=== PATIENT | female | born 1975 | race Caucasian/White ===

== ENCOUNTER 2020-08-24 16:49 | Emergency (ER) | payer OTHER ==
[~2020-08-24] VITALS: Ht 167.6 cm; Wt 130.9 kg
[2020-08-24 17:01] VITALS: BP 118/73
--- NOTE | 2020-08-24 17:06 | PHYS DOC ---
Past History Past Medical History: No Pertinent History Past Surgical History: Cholecystectomy, Hysterectomy, Tonsillectomy, Tubal ligation Smoking: Non-smoker Alcohol Use: None Drug Use: None General Adult EDM: Chief Complaint: ANKLE PROBLEM HPI: HPI: Patient is a 45-year-old email who presents with right ankle pain. Patient states that she was walking in the house this morning when she slipped on ice and fell. Patient reports taking 800 mg of ibuprofen this morning with no relief. Patient reporting pain 8 out of 10. Patient has history of hypothyroid, GERD, bipolar, migraines. Review of Systems: Review of Systems: Constitutional: Denies fever or chills Eyes: Denies change in visual acuity HENT: Denies nasal congestion or sore throat Respiratory: Denies cough or shortness of breath Cardiovascular: Denies chest pain or edema GI: Denies abdominal pain, nausea, vomiting, bloody stools or diarrhea : Denies dysuria Musculoskeletal: Right ankle pain Integument: Denies rash Neurologic: Denies headache, focal weakness or sensory changes Endocrine: Denies polyuria or polydipsia Lymphatic: Denies swollen glands Psychiatric: Denies depression or anxiety Allergies: Allergies: Allergies Coded Allergies Type Severity Reaction Last Updated Verified No Known Drug Allergies 08/24/20 No Physical Exam: PE: Constitutional: Well developed, well nourished, no acute distress, non-toxic appearance. [] HENT: Normocephalic, atraumatic, bilateral external ears normal, oropharynx moist, no oral exudates, nose normal. [] Eyes: PERRLA, EOMI, conjunctiva normal, no discharge. [] Neck: Normal range of motion, no tenderness, supple, no stridor. [] Cardiovascular:Heart rate regular rhythm, no murmur [] Lungs & Thorax: Bilateral breath sounds clear to auscultation [] Abdomen: Bowel sounds normal, soft, no tenderness, no masses, no pulsatile masses. [] Skin: Warm, dry, no erythema, no rash. [] Back: No tenderness, no CVA tenderness. [] Extremities: Right ankle tenderness, ROM intact, no edema. [] Neurologic: Alert and oriented X 3, normal motor function, normal sensory function, no focal deficits noted. [] Psychologic: Affect normal, judgement normal, mood normal. [] EKG: EKG: [] Radiology/Procedures: Radiology/Procedures: []Left ankle 3 views INDICATION: Right ankle pain COMPARISON: None FINDINGS: An acute oblique fracture through the distal fibula at the level of the ankle mortise is present with minimal widening. Ankle mortise appears symmetric. No dislocation noted. Mild soft tissue tissue swelling is present. IMPRESSION: Acute Turner type B right ankle fracture with minimal displacement. Electronically signed by: aTnya Humphreys MD (08/24/2020 5:26 PM) [id number] Heart Score: Risk Factors: Risk Factors: DM, Current or recent (<one month) smoker, HTN, HLP, family history of CAD, obesity. Risk Scores: Score 0 - 3: 2.5% MACE over next 6 weeks - Discharge Home Score 4 - 6: 20.3% MACE over next 6 weeks - Admit for Clinical Observation Score 7 - 10: 72.7% MACE over next 6 weeks - Early Invasive Strategies Course & Med Decision Making: Course & Med Decision Making Pertinent Labs and Imaging studies reviewed. (See chart for details) []Patient is a 45-year-old email who presents with right ankle pain. Patient states that she was walking in the house this morning when she slipped on ice and fell. Patient reports taking 800 mg of ibuprofen this morning with no relief. Patient reporting pain 8 out of 10. Patient has history of hypothyroid, GERD, bipolar, migraines. Patient states that she is unable to bear weight, patient uses a cane to ambulate into the emergency room. Dorsal pedal pulses intact. Ankle x-ray ordered rule out fracture. Hydrocodone given for pain. Right ankle x-ray ordered for gravity test to determine stability. Patient appears upset due to wait time for radiology results. I spoke with patient and apologized for the weight. Patient states that she understands that we are busy. Explained to mom and patient that she would be discharged after her splint was placed. X-ray shows ankle stability. Posterior short legs splints ordered. Patient still reporting pain. Hydrocodone given. Sending home patient with instructions for RICE and a prescription for hydrocodone. Dragon Disclaimer: Pooja Disclaimer: This electronic medical record was generated, in whole or in part, using a voice recognition dictation system. Departure Departure: Impression: Primary Impression: Fracture, ankle Qualified Codes: S82.891A - Other fracture of right lower leg, initial encounter for closed fracture Disposition: 01 DC HOME SELF CARE/HOMELESS Condition: STABLE Referrals: GARFIELD JACKSON DO (PCP) Patient Instructions: Ankle Fracture, [id number] Additional Instructions: You were seen in the emergency room tonight for an ankle fracture. We have placed a splint on your right ankle given you crutches. I am sending you home with a prescription for pain medication and you can also take ibuprofen for discomfort. Make sure to rest and elevate your leg. Do not apply any weight to your ankle. Please call Ortho tomorrow to set up an appointment for follow up. [phone]. They are located at [address] [place] [address], [address], [place]. Please return to the emergency room with worsening symptoms or concerns. EMERGENCY DEPARTMENT GENERAL DISCHARGE INSTRUCTIONS Thank you for coming to [facility] (ED) today and trusting us with you care. We trust that you had a positivie experience in our Emergency Department. If you wish to speak to the department management, you may call the director at [phone]. YOUR FOLLOW UP INSTRUCTIONS ARE FOLLOWS: 1. Do you have a private Doctor? If you do not have a private doctor, please ask for a resource list of physicians or clinics that may be able to assist you with follow up care. 2. The Emergency Physician has interpreted your x-rays. The X-Ray specialist will also review them. If there is a change in the findings, you will be notified in 48 hours when at all possible. 3. A lab test or culture has been done, your results will be reviewed and you will be notified if you need a change in treatment. ADDITIONAL INSTRUCTIONS AND INFORMATION: 1. Your care today has been supervised by a physician who is specially trained in emergency care. Many problems require more than one evaluation for a complete diagnosis and treatment. We recommend that you schedule your follow up appointment as recommended to ensure complete treatment of you illness or injury. If you are unable to obtain follow up care and continue to have a problem, or if your condition worsens, we recommend that you return to the ED. 2. We are not able to safely determine your condition over the phone nor are we able to give sound medical advice over the phone. For these safety reasons, if you call for medical advice we will ask you to come to the ED for further evaluation. 3. If you have any questions regarding these discharge instructions please call the ED at [phone]. SAFETY INFORMATION: In the interest of safety, wellness, and injury prevention; we encourage you to wear your sealbelt, if you smoke; quite smoking, and we encourage family to use a protective helmet for bicycling and other sporting events that present an increased risk for head injury. IF YOUR SYMPTOMS WORSEN OR NEW SYMPTOMS DEVELOP, OR YOU HAVE CONCERNS ABOUT YOUR CONDITION; OR IF YOUR CONDITION WORSENS WHILE YOU ARE WAITING FOR YOUR FOLLOW UP APPOINTMENT; EITHER CONTACT YOUR PRIMARY CARE DOCTOR, THE PHYSICIAN WHOSE NAME AND NUMBER YOU WERE GIVEN, OR RETURN TO THE ED IMMEDIATELY. Scripts Hydrocodone Bit/Acetaminophen (HYDROCODONE-APAP 5-325 ) 1 Each Tablet 1 TAB PO PRN Q6HRS PRN for PAIN for 3 Days, #12 TAB 0 Refills Prov: MEME DAS APRN 08/24/20 MEME DAS APRN Aug 24, 2020 17:06
[2020-08-24] MEDS ORDERED: HYDROcodone/APAP 5/325MG 1 TAB TABLET PO ONE ×2 (17:15→19:15)
--- NOTE | 2020-08-24 17:28 | RAD ---
Left ankle 3 views INDICATION: Right ankle pain COMPARISON: None FINDINGS: An acute oblique fracture through the distal fibula at the level of the ankle mortise is present with minimal widening. Ankle mortise appears symmetric. No dislocation noted. Mild soft tissue tissue swe lling is present. IMPRESSION: Acute Truner type B right ankle fracture with minimal displacement. Electronically signed by: Tanya Humphreys MD (08/24/2020 5:26 PM) [id number]
[2020-08-24] MEDS ORDERED: HYDR-2155 PO (19:23)
--- NOTE | 2020-08-24 19:29 | RAD ---
INDICATION: Reason: fall. gravity / Spl. Instructions: / History: COMPARISON: Earlier same day IMPRESSION: Right ankle: 2 views obtained. Obliquely oriented mildly displaced fracture of the distal fibula exte nding intra-articularly is again seen with similar alignment compared to prior. Adjacent edema to the fat. Electronically signed by: Prateek Nielsen MD (08/24/2020 7:26 PM) [id number]
== END 2020-08-24 20:10 | disposition home or self-care (01) ==
LOC: ER 16:49
DX: S82.891A Other fracture of right lower leg, initial encounter for closed fracture (principal); W00.0XXA Fall on same level due to ice and snow, initial encounter; Y93.01 Activity, walking, marching and hiking; Y92.89 Other specified places as the place of occurrence of the external cause; Y99.8 Other external cause status
CPT/HCPCS: 29515; 73600; 73610; 99284

== ENCOUNTER → 2020-09-18 | Outpatient (CLI) | payer OTHER ==
[2020-08-24 17:01] VITALS: BP 118/73
[~2020-09-18] MED LIST: HYDR-2155 PO
--- NOTE | 2020-09-18 12:03 | RAD ---
EXAM: Right lower extremity venous Doppler. HISTORY: Right lower extremity pain/swelling. COMPARISON: None. FINDINGS: Grayscale and Doppler analysis of the right lower extremity deep venous systems was perform ed with graded compression and augmentation. The common femoral, greater saphenous, superficial femor al, popliteal and calf veins were assessed. There is evidence of deep venous thrombosis. This involves partial occlusion of the right popliteal v ein and occlusion of the posterior tibial vein. IMPRESSION: 1. There is evidence of deep venous thrombosis in the right lower extremity. FOR INTERNAL CODING PURPOSES Critical result: Findings discussed with Dr. Nicolás Hull at 09/18/2020 11:58 AM. RESULT CODE: (C) Electronically signed by: Tanya Humphreys MD (09/18/2020 12:00 PM) [id number]
== END ==
LOC: US 11:09
PROVIDERS: ATTEND Internal Medicine
DX: I82.431 Acute embolism and thrombosis of right popliteal vein (principal)
CPT/HCPCS: 93971

== ENCOUNTER → 2020-10-14 | Outpatient (CLI) | payer OTHER ==
[~2020-10-14] MED LIST changes: +IOHEXOL 350 MG/ML 100 ML VIAL. IV ONE
--- NOTE | 2020-10-14 12:21 | RAD ---
Study: CT CHEST WITH CONTRAST - PULMONARY ANGIOGRAM History: Shortness of breath with right lower leg DVT Comparison: CT angiogram chest 06/06/2014 Technique: Helical CT of the chest performed after the administration of intravenous contrast and ti med for angiographic evaluation of the pulmonary arteries per PE protocol. Coronal and sagittal 3D NV P reformations were obtained. One or more of the following individualized dose reduction techniques were utilized for this examinat ion: 1. Automated exposure control 2. Adjustment of the mA and/or kV according to patient size 3. Use of iterative reconstruction technique. Findings: Pulmonary Arteries: Contrast bolus is adequate. There is an acute pulmonary embolism in a proximal se gmental pulmonary artery in the right lower lobe. Heart/Systemic Vasculature: Heart is normal in size. No pericardial effusion. The thoracic aorta is n ormal in caliber. Mediastinum: There is no mediastinal or hilar lymphadenopathy. Lungs: Lungs are clear. No pleural effusion. Neck/Axilla/Body Wall: Normal. Upper Abdomen: A 9 mm hypodensity in the dome the liver is unchanged from 2013 and may be a cyst or h emangioma. There are new surgical changes of gastric sleeve. Cholecystectomy. Bones: No acute osseous abnormality. IMPRESSION: Acute pulmonary embolism in a right lower lobe segmental pulmonary artery overall small thrombus burden. No evidence of right heart strain. FOR INTERNAL CODING PURPOSES Critical result: Findings discussed with Dr. Hull at 10/14/2020 12:19 PM. RESULT CODE: (C) Electronically signed by: Monica Romero MD (10/14/2020 12:19 PM) [id number]
== END ==
LOC: CT 11:11
PROVIDERS: ATTEND Internal Medicine
DX: I26.99 Other pulmonary embolism without acute cor pulmonale (principal); I82.4Z1 Acute embolism and thrombosis of unspecified deep veins of right distal lower extremity; R06.02 Shortness of breath; Z90.49 Acquired absence of other specified parts of digestive tract
CPT/HCPCS: 71275; Q9967

== ENCOUNTER 2021-07-05 17:11 | Emergency (ER) | payer BC, OTHER ==
[~2021-07-05] VITALS: Ht 165.1 cm; Wt 131.8 kg
[~2021-07-05 17:11] MED LIST changes: -IOHEXOL 350 MG/ML 100 ML VIAL. IV ONE
--- NOTE | 2021-07-05 19:31 | RAD ---
XR CHEST 1V History: Reason: SOB / Spl. Instructions: / History: Comparison: None. Findings: No consolidation or pleural effusion. Normal heart size. No pneumothorax. Impression: 1. No acute cardiopulmonary process. Electronically signed by: Prakash Velásquez DO (07/05/2021 7:28 PM) [facility] [place]
[2021-07-05] MEDS ORDERED: DEXA4TAB63 PO (19:54)
[2021-07-05 20:24] VITALS: BP 124/80
[2021-07-05] MEDS ORDERED: ACETAMINOPHEN 500 MG TABLET PO ONE (20:30)
--- NOTE | 2021-07-05 20:34 | PHYS DOC ---
Past History Past Medical History: No Pertinent History Past Surgical History: Gastric Bypass, Hysterectomy Smoking: Non-smoker Alcohol Use: None Drug Use: None General Adult EDM: Chief Complaint: DYSPNEA/RESPIRATOY DISTRESS HPI: HPI: 38-year-old female presents with cough, shortness of breath, body aches, fat igue. She said the symptoms for 1-1/2 days. She has a positive COVID-19 family member. She is not vaccinated against COVID-19. She denies chest pain or diaphoresis. Review of Systems: Review of Systems: Constitutional: Denies fever or chills. Body aches, fatigue Eyes: Denies change in visual acuity HENT: Denies nasal congestion or sore throat Respiratory: Cough with mild shortness of breath Cardiovascular: Denies chest pain or edema GI: Denies abdominal pain, nausea, vomiting, bloody stools or diarrhea : Denies dysuria Musculoskeletal: Denies back pain or joint pain Integument: Denies rash Neurologic: Denies headache, focal weakness or sensory changes Endocrine: Denies polyuria or polydipsia Lymphatic: Denies swollen glands Psychiatric: Denies depression or anxiety Current Medications: Current Meds: Current Medications Medications (Trade) Dose Ordered Sig/Brooke Start Time Stop Time Status Last Admin Dose Admin Acetaminophen (Tylenol) 1,000 mg 1X ONCE 07/05/21 20:30 07/05/21 20:31 DC Allergies: Allergies: Allergies Coded Allergies Type Severity Reaction Last Updated Verified No Known Drug Allergies 07/05/21 No Physical Exam: PE: Constitutional: Well developed, well nourished, no acute distress, non-toxic appearance. [] HENT: Normocephalic, atraumatic, bilateral external ears normal, oropharynx moist, no oral exudates, nose normal. [] Eyes: PERRLA, EOMI, conjunctiva normal, no discharge. [] Neck: Normal range of motion, no tenderness, supple, no stridor. [] Cardiovascular:Heart rate regular rhythm, no murmur [] Lungs & Thorax: Bilateral breath sounds clear to auscultation [] Abdomen: Bowel sounds normal, soft, no tenderness, no masses, no pulsatile masses. [] Skin: Warm, dry, no erythema, no rash. [] Back: No tenderness, no CVA tenderness. [] Extremities: No tenderness, no cyanosis, no clubbing, ROM intact, no edema. [] Neurologic: Alert and oriented X 3, normal motor function, normal sensory fun ction, no focal deficits noted. [] Psychologic: Affect normal, judgement normal, mood normal. [] Current Patient Data: Vital Signs: Vital Signs Date Time Temp Pulse Resp B/P (MAP) Pulse Ox O2 Delivery O2 Flow Rate FiO2 07/05/21 20:24 102.0 90 20 124/80 (95) 99 Room Air EKG: EKG: [] Radiology/Procedures: Radiology/Procedures: [] Heart Score: C/O Chest Pain: N/A Risk Factors: Risk Factors: DM, Current or recent (<one month) smoker, HTN, HLP, family history of CAD, obesity. Risk Scores: Score 0 - 3: 2.5% MACE over next 6 weeks - Discharge Home Score 4 - 6: 20.3% MACE over next 6 weeks - Admit for Clinical Observation Score 7 - 10: 72.7% MACE over next 6 weeks - Early Invasive Strategies Course & Med Decision Making: Course & Med Decision Making Pertinent Labs and Imaging studies reviewed. (See chart for details) The patient is COVID-19. Her chest x-ray is unremarkable at this time. I will place her on Decadron for 5 days. She already has oxygen at home that she takes for previous DVT and PE. She does not meet admission criteria. She is stable for discharge at this time. [] Pooja Disclaimer: Pooja Disclaimer: This electronic medical record was generated, in whole or in part, using a voice recognition dictation system. Departure Departure: Impression: Primary Impression: COVID-19 Disposition: HOME / SELF CARE / HOMELESS Condition: STABLE Patient Instructions: Viral Syndrome Additional Instructions: You have been tested for or diagnosed with COVID-19. It is an infection caused by a new type of coronavirus. COVID-19 will cause cold-like or mild flu symptoms in most. It can cause more severe symptoms like problems breathing in some. There is no treatment for COVID-19. The body will clear the infection over time. Self-care will help to ease discomfort. Steps to Take: Self-Care Rest as needed. Healthy habits may help you feel better. Steps include: Choose healthy foods including fruits and vegetables. Drink water throughout the day. Get plenty of sleep each night. If you smoke, try to quit. It may ease breathing. Avoid alcohol. Keep Others Healthy The virus can spread to others. Droplets are released every time you sneeze or cough. The droplets can get into the mouth, nose, or eyes of people near you and lead to infection. To lower the chances of spreading COVID-19 to others: Stay at home until your doctor has said it is safe to leave. If you tested positive this will mean staying isolated until both of the following are true: At least 7 days have passed since the start of illness. You are free of fever for at least 72 hours without the use of medicine. During this time: - Avoid public areas, events, or transportation. Do not return to work or school until your doctor has said it is safe to do so. - Call ahead if you need to go to a medical center. Let them know you may have COVID-19. It will help them guide you where to go. They may also ask you to wear a facemask when you come to the office. - If you call for emergency medical services, let them know you may have COVID- 19. While at home: - Try to avoid close contact with others. Stay about 6 feet away. - If possible, spend most of your time in a separate room from others. - Use a face mask if you will be in close contact with others such as sharing a room or vehicle. - Have someone wipe down common surfaces in the home. Use household business banking manager every day on areas like doorknobs, counters, or sinks. - Cough or sneeze into a tissue. Throw the tissue away right after use. If a tissue is not available, cough or sneeze into your elbow. - Wash your hands often. Wash them after sneezing or coughing. Use soap and water and wash for at least 20 seconds. Alcohol based hand drycleaner can be used if soap and water is not available. - Do not prepare food for others. Avoid sharing personal items like forks, spoons, or toothbrushes. - Avoid close contact with pets while you are sick. There is no evidence of the virus passing to pets. This is a safety step until more is known about this virus. Isolation can be frustrating. Social interaction can help. Keep in touch with friends and family through phone and tech options. You can still interact with others in your home, just keep a safe distance of about 6 feet. Follow-up: Your doctors office will check in with you to see if there are any changes in your health. You may be asked to keep track of symptoms to share with them. They will also let you know when you are clear to be in public again. Problems to Look Out For: Contact your doctor if your recovery is not going as you expect. Get emergency care if you have problems such as: - Trouble breathing - Nonstop chest pain or pressure - Changes in awareness, confusion, or problems waking - Lips or face have bluish color - Worsening of symptoms If you think you have an emergency, call for emergency medical services right away. As taken from [facility] Scripts Dexamethasone (Decadron) 4 Mg Tablet 1 TAB PO BID for COVID for 5 Days, #10 TAB 0 Refills Prov: KATIA DORAN DO 07/05/21 KATIA DORAN DO Jul 05, 2021 20:34
[2021-07-05 20:55] LABS: INFLUENZA A PATIENT NEGATIVE (NEGATIVE); INFLUENZA B PATIENT NEGATIVE (NEGATIVE)
== END 2021-07-05 20:46 | disposition home or self-care (01) ==
LOC: ER 17:11
DX: U07.1 COVID-19 (principal); Z98.84 Bariatric surgery status
CPT/HCPCS: 71045; 87426; 87804; 99284

== ENCOUNTER → 2021-07-21 | Outpatient (CLI) | payer BC ==
[2021-07-05 20:24] VITALS: BP 124/80
[~2021-07-21] MED LIST changes: +DEXA4TAB63 PO
--- NOTE | 2021-07-21 11:06 | RAD ---
XR CHEST 2V History: Reason: COUGH, COVID X 2 WEEKS / Spl. Instructions: / History: Comparison: July 05, 2021 Findings: Mild multifocal ill-defined opacities most prominent within the left mid and lower lung. No pleural e ffusion. No pneumothorax. Normal heart size. Impression: 1. Mild multifocal ill-defined opacities, can be seen with viral pneumonia. Electronically signed by: Prakash Velásquez DO (07/21/2021 11:04 AM) [id number]
== END ==
LOC: RAD 09:37
PROVIDERS: ATTEND Internal Medicine
DX: U07.1 COVID-19 (principal)
CPT/HCPCS: 71046